=== PATIENT | female | born 1985 | race Caucasian/White ===

== ENCOUNTER 2017-12-31 23:05 | Emergency (ER) | payer SELFPAY ==
[2017-12-31] MEDS ORDERED: Lidocaine 1% MPF 2 ML VIAL ONE ×2 (23:27→23:28)
[2017-12-31] MEDS ORDERED: Lidocaine 1% 20 ML MDV ONE (23:29)
[2017-12-31] MEDS ORDERED: Adacel (T-DAP) 0.5 ML VIAL ONE (23:50)
[2018-01-01] MEDS ORDERED: Bacitracin Zinc 1 Packet ONE (00:44)
== END 2018-01-01 00:56 | disposition home or self-care (01) ==
LOC: SCSER 23:05
DX: S61.217A Laceration without foreign body of left little finger without damage to nail, initial encounter (principal); F17.200 Nicotine dependence, unspecified, uncomplicated; W25.XXXA Contact with sharp glass, initial encounter
CPT/HCPCS: 12001; 90471; 90715; J2001